=== PATIENT | male | born 1975 | race Caucasian/White ===

== ENCOUNTER 2019-10-15 11:05 | Emergency (ER) | payer OTHER, SELFPAY ==
[2019-10-15 11:07] VITALS: BP 138/82; PULSE 89; RESP 18; TEMP 36.6; O2SAT 99; BMI 25.1
--- NOTE | 2019-10-15 11:17 | ED.VIS.GEN ---
History of Present Illness Chief Complaint: Laceration Informant: Patient Narrative: Patient is a previous healthy 44-year-old male who presents to the emerge department for laceration to left middle finger. He states he was at work when he was trying to pull a bucket out of the van. His hand slipped and he cut the finger on the door. Bleeding was controlled prior to arrival in the emergency department. Denies any loss of sensation. No difficulty moving the finger. No other injury. Patient states his last tetanus shot has been greater than 5 years. Laceration is approximately 2 cm and linear in shape. He is not on any anticoagulation. No bleeding disorders. Past Medical History - Allergies and Home Meds Allergies/Adverse Reactions: Allergies No Known Allergies Allergy (Verified 10/15/19 11:05) Primary Care Physician: NOT,DEFINED [NON-STAFF] - 3-5 Days Prior records reviewed: Yes Past Medical History: None Review of Systems All systems negative except as indicated General: Denies: Chills, Fever ENT: Denies: Sore throat Cardiovascular: Denies: Chest pain, Palpitations Respiratory: Denies: Dyspnea, Cough Gastrointestinal: Denies: Abdominal pain, Nausea, Vomiting Musculoskeletal: Denies: Back pain, Extremity Pain Skin: Reports: Wounds - laceration. Denies: Rash Neurological: Denies: Headache, Weakness, Numbness Hematologic: Denies: Easy bruising, Easy bleeding Physical Exam Vital Signs/Narrative: Vital Signs Temp Pulse Resp BP Pulse Ox 10/15/19 11:07 98 F 89 18 138/82 H 99 Inital Vital Signs reviewed: Yes General: Well nourished, Well developed Head: Normocephalic, Atraumatic Eyes: Perrl, EOMI ENT: Moist mucous membranes Neck: Supple Cardiovascular: Regular rate Respiratory: No distress Abdomen: Nondistended Extremities: - - 2 cm laceration to left middle finger lateral side. No active bleeding. Full range of motion. Capillary refill is brisk. Sensation intact. Laceration is only about 1 mm deep Skin: Normal color Neurological: Alert, Normal Strength, Normal Sensation Psychological: Normal affect, Normal Mood Diagnostic/Tx/Re-eval - Medical Decision Making Patient presents to emergency department for laceration that occurred at work. Laceration does not require suture repair. He does require Tdap update today. Wound cleaned out with normal saline and soapy water. 2 Steri-Strips were applied. Wound came together closely. No active bleeding. Patient advised to follow-up with his PCP. He is to monitor for evidence of infection. Will discharge home in stable condition at this time. He understands and is agreeable with this plan. ED Disposition - Plan for ED Patient: Disposition: Home or Assisted Living Diagnosis: Finger laceration Instructions: ED Laceration All Closures Referrals: NOT,DEFINED [NON-STAFF] - 3-5 Days
[2019-10-15] MEDS: Diphth,Pertuss(Acell),Tet Vac 0.5 ML Vial IM (11:21)
[2019-10-15 12:07] VITALS: RESP 16
--- NOTE | 2019-10-15 12:08 | ED.RN ---
REVIEWED D/C INSTRUCTIONS, FOLLOW UP CARE, AND S/S THAT WOULD WARRANT A RETURN TO THE ED WITH PT. PT VERBALIZED AN UNDERSTANDING AND DENIES FURTHER QUESTIONS FOR THIS RN. PT SKIN P/W/D, RESP EVEN AND UNLABORED, PT A&O X 3, NO DISTRESS NOTED. PT AMBULATED OUT OF ED, GAIT STEADY.
== END 2019-10-15 12:09 | disposition home or self-care (01) ==
PROVIDERS: Emergency Provider Emergency Medicine
DX: S61.213A Laceration without foreign body of left middle finger without damage to nail, initial encounter (principal); W26.8XXA Contact with other sharp object(s), not elsewhere classified, initial encounter; Y93.89 Activity, other specified; Y92.89 Other specified places as the place of occurrence of the external cause; Y99.0 Civilian activity done for income or pay; Z23 Encounter for immunization
CPT/HCPCS: 90471; 90715; 99282

== ENCOUNTER → 2022-11-14 | Outpatient (CLI) | payer OTHER, SELFPAY ==
[2022-11-14 17:30] LABS: Absolute Lymphocyte Count 4.07 X10^3/uL (0.83-4.51); Absolute Neutrophil Count 3.5 X10^3/uL (2.0-7.7); Basophil# 0.17 X10^3/uL; Basophil% 1.9 % (0-1); Eosinophil# 0.66 X10^3/uL; Eosinophils% 7.2 % (0-5); Hematocrit 39.5 % (40-54); Hemoglobin 13.2 g/dL (13.0-16.5); Lymphocyte # 4.07 X10^3/ul (0.83-4.51); Lymphocyte % 44.3 % (19-41); Mean Corp Hgb Conc 33.4 g/dL (32-36); Mean Corpuscular Hgb 30.8 pg (27.0-32.0); Mean Corpuscular Volume 92.3 fL (80-94); Mean Platelet Vol. 12.4 fl (6.2-12.0); Monocyte# 0.79 X10^3/uL; Monocyte% 8.6 % (0-10); NRBC Flagged by Analyzer 0 % (0-5); Neutrophil # 3.47 X10^3/uL (2.7-7.7); Neutrophil % 37.8 % (47-70); Platelet Count 232 K/mm3 (150-450); RBC Distribution Width CV 12.2 % (11.6-14.6); RBC Distribution Width SD 41.2 fl (35.1-43.9); Red Blood Count 4.28 M/mm3 (4.6-6.2); White Blood Count 9.2 K/mm3 (4.4-11.0)
[2022-11-14 18:30] LABS: HIV - WCH Non-Reactive (Nonreactive)
[2022-11-14 18:55] LABS: ALB/GLOB Ratio 1.6 RATIO (0.9-2.4); AST(SGOT) 17 U/L (15-37); Alanine Aminotransfer ALT/SGPT 27 U/L (16-61); Albumin, Serum 4.2 g/dL (3.2-5.0); Alkaline Phosphatase 85 U/L (45-117); Anion Gap 4 (5-15); BUN 16 mg/dL (7-18); BUN/Creat Ratio 19.6 RATIO (10-20); Calcium,Total 9.1 mg/dL (8.5-10.1); Chloride 108 mmol/L (98-107); Cholesterol 197 mg/dL (200); Creatinine, Serum 0.82 mg/dL (0.70-1.30); EST Glomerular Filtration Rate 108 mL/min (>60); Est Glom Filt Rate - Afr Amer 131 mL/min (>60); Globulin 2.6 g/dL (2.2-4.2); Glucose 92 mg/dL (74-106); High Density Lipoprotein 62 mg/dL; Protein, Total 6.8 g/dL (6.4-8.2); Sodium Level 141 mmol/L (136-145); Thyroid Stim Hormone (TSH) 0.59 uIU/mL (0.358-3.74); Triglycerides 171 mg/dL; Very Low Density Lipoprotein 34 mg/dL (5-40)
== END | disposition home or self-care (01) ==
LOC: MFPLAB 16:22
PROVIDERS: PCP Family Medicine; Visit Provider Family Medicine
DX: Z11.4 Encounter for screening for human immunodeficiency virus [HIV] (principal); R53.83 Other fatigue; R42 Dizziness and giddiness
CPT/HCPCS: 36415; 80053; 80061; 84443; 85025; 86703

== ENCOUNTER → 2024-04-01 | Outpatient (CLI) | payer OTHER, SELFPAY ==
[2024-04-01 15:13] LABS: Absolute Lymphocyte Count 3.41 X10^3/uL (0.83-4.51); Basophil# 0.15 X10^3/uL; Basophil% 1.7 % (0-1); Eosinophil# 0.33 X10^3/uL; Eosinophils% 3.8 % (0-5); Hematocrit 42.4 % (40-54); Hemoglobin 14.2 g/dL (13.0-16.5); Lymphocyte # 3.41 X10^3/ul (0.83-4.51); Mean Corp Hgb Conc 33.5 g/dL (32-36); Mean Corpuscular Hgb 30.3 pg (27.0-32.0); Mean Corpuscular Volume 90.6 fL (80-94); Mean Platelet Vol. 11.9 fl (6.2-12.0); Monocyte# 0.79 X10^3/uL; NRBC Flagged by Analyzer 0 % (0-5); Neutrophil # 4.03 X10^3/uL (2.7-7.7); Neutrophil % 46.2 % (47-70); Platelet Count 249 K/mm3 (150-450); RBC Distribution Width CV 12.3 % (11.6-14.6); RBC Distribution Width SD 40.6 fl (35.1-43.9); Red Blood Count 4.68 M/mm3 (4.6-6.2); White Blood Count 8.7 K/mm3 (4.4-11.0)
[2024-04-01 15:29] LABS: Vitamin D,25 Hydroxy 22.8 ng/mL
[2024-04-01 16:00] LABS: ALB/GLOB Ratio 1.5 RATIO (0.9-2.4); AST(SGOT) 24 U/L (15-37); Alanine Aminotransfer ALT/SGPT 28 U/L (16-61); Albumin, Serum 4.4 g/dL (3.2-5.0); Alkaline Phosphatase 93 U/L (45-117); Anion Gap 7 (5-15); BUN 15 mg/dL (7-18); BUN/Creat Ratio 18.4 RATIO (10-20); Calcium,Total 9.5 mg/dL (8.5-10.1); Chloride 105 mmol/L (98-107); Cholesterol 207 mg/dL (200); Creatinine, Serum 0.81 mg/dL (0.70-1.30); EST Glomerular Filtration Rate 108 mL/min (>60); Est Glom Filt Rate - Afr Amer 131 mL/min (>60); Glucose 82 mg/dL (74-106); High Density Lipoprotein 68 mg/dL; PSA,Total - Annual Screen 1.61 ng/mL (0.00-4.00); Potassium 3.9 mmol/L (3.5-5.1); Protein, Total 7.4 g/dL (6.4-8.2); Sodium Level 140 mmol/L (136-145); Thyroid Stim Hormone (TSH) 0.533 uIU/mL (0.358-3.740); Triglycerides 149 mg/dL; Very Low Density Lipoprotein 30 mg/dL (5-40)
== END | disposition home or self-care (01) ==
LOC: MFPLAB 12:18
PROVIDERS: PCP Family Medicine; Referring Provider Family Medicine; Visit Provider Family Medicine
DX: R53.83 Other fatigue (principal); R42 Dizziness and giddiness; Z09 Encounter for follow-up examination after completed treatment for conditions other than malignant neoplasm; Z12.5 Encounter for screening for malignant neoplasm of prostate; Z13.220 Encounter for screening for lipoid disorders

== ENCOUNTER → 2024-07-07 | Outpatient (CLI) | payer OTHER, SELFPAY | END | disposition home or self-care (01) | PROVIDERS: PCP Family Medicine; Referring Provider Family Medicine; Visit Provider Family Medicine | DX: I95.9 Hypotension, unspecified (principal) | CPT/HCPCS: 36415; 82024; 82088; 82533; 84244 ==

== ENCOUNTER → 2024-07-24 | Outpatient (CLI) | payer OTHER, SELFPAY ==
--- NOTE | 2024-07-24 10:40 | MRI_ITS ---
EXAM: MRI brain/orbits with and without contrast CLINICAL HISTORY: Eye pain and headaches. Blurry vision. Dull pain of right eye. COMPARISON: None. TECHNIQUE: Multiplanar multisequence MRI of the brain and orbits before and after IV gadolinium infusion (13 mL Clariscan) FINDINGS: No restricted diffusion. No acute infarction, hemorrhage, or mass. Single T2 FLAIR hyperintensity in the superior left frontal subcortical white matter measuring 3 mm. This is considered negligible as an isolated finding. White matter is otherwise unremarkable. No encephalomalacia. The cortical sulci, ventricles, and basilar cisterns are unremarkable. The sellar and parasellar regions are unremarkable. The optic chiasm is unremarkable. The orbits are normal. No exophthalmos. No orbital inflammatory process. Optic nerve and nerve sheaths are normal. Extraocular muscles are unremarkable. No orbital inflammatory process. Normal lacrimal glands. Trace mucosal thickening throughout the frontal, ethmoid, and sphenoid sinuses. Marrow signal is normal. Large artery flow voids are preserved indicating gross patency. MRI/Orbit Face Neck W/WO Contrast IMPRESSION: 1. Essentially normal brain and orbital MRI. No orbital mass or inflammatory process identified. No infarction, hemorrhage, or mass. 2. Trace mucosal thickening of the sinuses suggesting minimal sinusitis. Reading Location: [facility]
== END | disposition home or self-care (01) ==
PROVIDERS: PCP Family Medicine; Referring Provider Ophthalmology; Visit Provider Ophthalmology
DX: H57.11 Ocular pain, right eye (principal)
CPT/HCPCS: 70543; A9575